=== PATIENT | male | born 1935 | race Caucasian/White ===

== ENCOUNTER 2017-10-17 09:04 | Day surgery (SDC) | payer OTHER ==
[~2017-10-17] VITALS: Ht 172.7 cm; Wt 111.1 kg
[2017-10-17] MEDS ORDERED: MIDAZOLAM HCL 1MG/1ML-2 ML VIAL IV ONE (09:45)
[2017-10-17] MEDS ORDERED: LIDOCAINE VISCOUS 2% 15ML UD PO ONE (09:45)
[2017-10-17] MEDS ORDERED: fentaNYL CITRATE 100 MCG/2 ML VL IV ONE (09:45)
[2017-10-17] MEDS ORDERED: BENZOCAINE (DENTAL) 20 % SPRAY 60ML MT ONE (09:45)
[2017-10-17] MEDS ORDERED: FLUMAZENIL 0.1 MG/ML INJ 10ML MDV IV ONE (09:49)
[2017-10-17] MEDS ORDERED: NALOXONE HCL 0.4 MG/ML VIAL ONE (09:49)
[2017-10-17] MEDS ORDERED: diphenhdrAMINE HCL 50 MG/1 ML VL ONE (10:12)
[2017-10-17] MEDS ORDERED: diphenhdrAMINE HCL 50 MG/1 ML VL IV ONE (10:45)
[2017-10-17] MEDS ORDERED: BACL20TA PO (11:05)
[2017-10-17] MEDS ORDERED: RIVA20TA PO (11:05)
[2017-10-17] MEDS ORDERED: AMIO200T33 PO (11:05)
[2017-10-17] MEDS ORDERED: ATOR80TA PO (11:05)
[2017-10-17] MEDS ORDERED: OMEP20CA74 PO (11:33)
[2017-10-17] MEDS ORDERED: TAMS0.4C36 PO (11:33)
[2017-10-17] MEDS ORDERED: SPIR25TA89 PO (11:33)
[2017-10-17] MEDS ORDERED: GLIM4TAB42 PO (11:33)
[2017-10-17] MEDS ORDERED: ATEN-60 PO (11:33)
[2017-10-17] MEDS ORDERED: NIF10C PO (11:33)
[2017-10-17] MEDS ORDERED: ALL100T PO (11:33)
[2017-10-17] MEDS ORDERED: LOSA25TA9 PO (11:33)
[2017-10-17] MEDS ORDERED: ALEN70TA55 PO (11:33)
== END 2017-10-17 11:45 | disposition home or self-care (01) ==
LOC: CATH 09:04
PROVIDERS: ATTEND Internal Medicine
DX: I48.91 Unspecified atrial fibrillation (principal); I10 Essential (primary) hypertension; E11.9 Type 2 diabetes mellitus without complications; E78.00 Pure hypercholesterolemia, unspecified
CPT/HCPCS: 92960; 93312; J1200; J2250; J3010; 99152

== ENCOUNTER 2020-06-27 04:54 | Inpatient (IN) | payer OTHER ==
[2020-06-27] VITALS (32 sets, daily range): BP systolic 67–160; BP diastolic 24–80
[~2020-06-27] VITALS: Ht 172.7 cm; Wt 117.8 kg
[~2020-06-27 04:54] MED LIST: ALEN1TAB32 PO; ALL100T PO; AMIO200T33 PO; ATEN-60 PO; ATOR80TA PO; BACL20TA PO; GLIM4TAB42 PO; LOSA25TA38 PO; NIF10C PO; OMEP20CA74 PO; RIVA20TA PO; SPIR25TA8 PO; TAMS0.4C36 PO
[2020-06-27] MEDS ORDERED: SUCCINYLCHOLINE CHLORIDE 20 MG/ML 10ML VIAL IV ONE (05:01)
[2020-06-27] MEDS ORDERED: ETOMIDATE (2MG/ML) 20ML VIAL IV ONE (05:01)
[2020-06-27] MEDS ORDERED: PROPOFOL 100 ML IV ONE (05:06)
[2020-06-27] MEDS ORDERED: dilTIAZem 25 MG/5 ML VIAL IV ONE ×2 (05:11→05:45)
[2020-06-27] MEDS ORDERED: dilTIAZem 125mg/125ml BAG KIT 125 ML IV ONE ×2 (05:19→05:45)
[2020-06-27] MEDS ORDERED: SODIUM CHLORIDE 0.9% 500 ML IV ONE (05:25)
[2020-06-27] MEDS ORDERED: MIDAZOLAM DRIP 50 mg/50mL 50 ML IV ONE (05:28)
[2020-06-27] MEDS: MIDAZOLAM DRIP 50 mg/50mL 50 ML IV SCH ×2 (05:30→18:25)
[2020-06-27] MEDS ORDERED: VANCOMYCIN PER PHARMACY 1,000 MG IV SCH (05:30)
[2020-06-27] MEDS ORDERED: PROPOFOL 10 MG/ML 20 ML IV ONE (05:45)
[2020-06-27] MEDS ORDERED: NOREPINEPHRINE 8 MG/250ML KIT 250 ML IV ONE (05:49)
[2020-06-27] MEDS: NOREPINEPHRINE 8 MG/250ML KIT 250 ML IV SCH ×3 (05:50→13:07)
[2020-06-27 05:56] LABS: Lactic Acid w/Reflex 2.4 mmol/L (0.4-2.0)
[2020-06-27] MEDS ORDERED: VANCOMYCIN 1GM/250ML 250 ML IV ONE (06:00)
[2020-06-27] MEDS: fentaNYL Drip 2500mCg/250mlNS 250 ML IV SCH (06:00)
[2020-06-27] MEDS ORDERED: fentaNYL Drip 2500mCg/250mlNS 250 ML IV ONE (06:08)
[2020-06-27] MEDS ORDERED: PHENYLEPHRINE IV 250 ML IV ONE (07:16)
[2020-06-27] MEDS: PHENYLEPHRINE IV 250 ML IV SCH ×2 (07:30→15:44)
[2020-06-27 07:32] LABS: Basophils # (auto) 0 10 ^3/uL (0-0.2); Basophils % (auto) 0.2 % (0.0-2.0); Eosinophils # (auto) 0.3 10 ^3/uL (0-0.8); Eosinophils % (auto) 2.4 % (0.0-7.0); Hematocrit 37.3 % (41.0-53.0); Hemoglobin 11.7 g/dL (13.5-17.5); Lymphocytes # (auto) 1.7 10 ^3/uL (0.4-5.4); Lymphocytes % (auto) 11.8 % (10.0-50.0); Mean Corpuscular Hemoglobin 30.9 pg (28.0-32.0); Mean Corpuscular Hgb Conc. 31.4 g/dL (32.0-36.0); Mean Corpuscular Volume 98.5 fL (80.0-100.0); Monocytes # (auto) 0.7 10 ^3/uL (0-1.3); Monocytes % (auto) 5.3 % (0.0-12.0); Neutrophils # (auto) 11.3 10 ^3/uL (1.6-8.6); Neutrophils % (auto) 80.3 % (37.0-80.0); Nucleated Red Blood Cells % 0.4 %; Platelet Count (auto) 203 10^3/uL (140-450); Red Blood Cells 3.79 10^6/uL (4.5-5.90); Red Cell Distribution Width 18.3 % (11.8-14.3)
[2020-06-27 07:52] LABS: Albumin 3.1 g/dL (3.4-5.0); Calcium 8.2 mg/dL (8.5-10.1); Potassium 4.3 mmol/L (3.5-5.1)
[2020-06-27 07:59] LABS: BUN/Creatinine Ratio 23.1; Bilirubin, Total 1.5 mg/dL (0.2-1.0); Total Protein 6.8 g/dL (6.4-8.2)
[2020-06-27 08:09] LABS: INR 1.39 (0.9-1.15); Partial Thromboplastin Time 32.2 sec (23.0-31.2)
[2020-06-27] MEDS: PIPERACILLIN-TAZOB 3.375GM 100 ML IV SCH ×3 (08:27→18:16)
[2020-06-27] MEDS ORDERED: AMIODARONE 450mg/250ml AE 250 ML IV SCH (08:54)
[2020-06-27] MEDS ORDERED: SODIUM CHLORIDE 0.9% 1,000 ML IV SCH (09:09)
[2020-06-27] MEDS ORDERED: VANCOMYCIN PER PHARMACY 0 MG IV SCH (09:15)
[2020-06-27] MEDS ORDERED: NITROGLYCERIN 0.4 MG SL TAB SL PRN (09:15)
[2020-06-27] MEDS ORDERED: ONDANSETRON HCL 4 MG/2 ML VIAL IV PRN (09:15)
[2020-06-27] MEDS ORDERED: PIPERACILLIN-TAZOB 3.375GM 100 ML IV ONE (09:15)
[2020-06-27] MEDS ORDERED: DEXTROSE (50%) 50ML SYRG IV PRN (09:15)
[2020-06-27] MEDS ORDERED: LACTULOSE 20Gm/30ML SOLN NG PRN (09:15)
[2020-06-27] MEDS ORDERED: AZITHROMYCIN 500MG/ 250ML 250 ML IV ONE (09:15)
[2020-06-27] MEDS ORDERED: MORPHINE SULF INJ 2 MG/ML SYRINGE 1ML IV PRN (09:15)
[2020-06-27] MEDS ORDERED: ALBUTEROL SULF 2.5 MG/0.5ML(0.5%) NEB SOLN NEB PRN (09:15)
[2020-06-27] MEDS ORDERED: SODIUM CHLORIDE 0.9% 3,200 ML IV ONE (09:45)
[2020-06-27] MEDS: AZITHROMYCIN 500MG/ 250ML 250 ML IV SCH (09:57)
[2020-06-27] MEDS: ENOXAPARIN SOD 100 MG/1 ML SYRINGE SC SCH ×2 (09:58→21:48)
[2020-06-27] MEDS: BUDESONIDE (INHALATION) 0.5 MG/2 ML NEB NEB SCH ×2 (10:00→18:30)
[2020-06-27] MEDS ORDERED: BUDESONIDE (INHALATION) 180 MCG IH IN SCH (10:00)
[2020-06-27] MEDS ORDERED: ZINC SULFATE 220mg CAP or TAB PO SCH (10:00)
[2020-06-27] MEDS ORDERED: DexAMETHasone SOD PHOS 10MG/1ML VIAL INJ IV SCH (10:00)
[2020-06-27] MEDS: ALBUTEROL SULF 2.5 MG/0.5ML(0.5%) NEB SOLN NEB SCH ×2 (10:53→18:30)
[2020-06-27] MEDS: IPRATROPIUM BROM 0.5 MG/2.5ML INH SOL NEB SCH ×2 (10:53→18:30)
--- NOTE | 2020-06-27 10:54 | NUR ---
NEBULIZER NOT ADMINISTERED AT THIS TIME DUE TO COVID 19 RULE/ OUT.
[2020-06-27] MEDS: ACCU-CHEK COMFORT CURVE STRIP VI SCH ×2 (11:51→18:21)
[2020-06-27] MEDS: InsuLIN REG 1unit/0.01ml Soln (100units/ml) SC SCH ×3 (11:54→23:42)
[2020-06-27] MEDS ORDERED: PIPERACILLIN-TAZOB 3.375GM 100 ML IV SCH (12:00)
[2020-06-27] MEDS ORDERED: ALBUTEROL SULF HFA 90MCG INH 200DOSE IN SCH (14:00)
[2020-06-27] MEDS: AMIODARONE 450mg/250ml AE 250 ML IV SCH (14:54)
[2020-06-27 16:19] LABS: Urine Bacteria FEW /hpf (None Seen); Urine Blood 1+ /uL (Negative); Urine Mucus FEW (None Seen); Urine Specific Gravity 1.007 (1.001-1.035); Urine WBC 3 /hpf (0 - 3)
--- NOTE | 2020-06-27 17:45 | NUR ---
Admit to ICU from ER on SHERYL [place] admitted to ICU via hospital bed on cardiac nurse specialist, intubated and being bagged by Respiratory Therapist. Patient connected to mechanical ventilator by therapist, ADRIANA at bedside. Patient connected to ICU monitoring, weighed by bedscale. See spreadsheet for physical assessment and fluids. Bed lcoked on low psoition,. side rails up x2, bed alarms on at all times, will continue to monitor.
[2020-06-27 19:40] LABS: BUN/Creatinine Ratio 21.2; Calcium 7.4 mg/dL (8.5-10.1); Potassium 4.9 mmol/L (3.5-5.1)
--- NOTE | 2020-06-27 19:45 | NUR ---
Spoke to patient's daughter Grecia over the phone. Updated on patient's status and POC. All questions and concerns addressed.
--- NOTE | 2020-06-27 20:30 | NUR ---
SPOKE WITH PATIENT'S DAUGHTER, ARNAV : AFTER PASSWORD VERIFIED, UPDATED ON PATIENT'S STATUS.
--- NOTE | 2020-06-27 20:30 | NUR ---
OPENING NOTE: INTUBATED AND GROSSLY UNRESPONSIVE. HYPOGAG AND COUGH. AFIB WITH PVCs AND BBB, HR 60-70s. NIBP TO LEFT UPPER ARM 120-130s ON LEVOPHED GTT. 7.5 ETT 22 AT THE LIP. LS CTA, DIMINISHED TO BASES. EVEN AND UNLABORED BREATHING. MINIMAL ETT AND ORAL SECRETIONS. SpO2>95% ON CURRENT VENT SETTINGS. ABD OBESE BUT SOFT. HYPOACTIVE BS. UNKNOWN LBM. OGT + AIR BOLUS, PLACED TO LIS, THICK BILIOUS OUTPUT. MARCUS PATENT AND INTACT DRAINING CLEAR YELLOW URINE. SKIN GROSSLY INTACT. LEFT FOREARM SKIN TEAR NOTED, COVERED WITH GENTLE OPTIFOAM. WILL TAKE WOUND CARE PHOTOS. BLANCHABLE ERYTHEMA TO SACRUM. 3+ GENERALIZED PITTING EDEMA. RIGHT AC 20 G PIV, CDI, AND PATENT WITH BLOOD RETURN, INFUSING VERSED, FENTANYL, AND LEVOPHED GTT. 20 G PIV TO LEFT WRIST, CDI AND PATENT, INFUSING NS AND ABX. 20 G PIV TO LEFT HAND, CDI AND PATENT WITH BLOOD RETURN, SALINE LOCKED. REINFORCED POC. MAINTAINED PATIENT SAFETY: BED LOCKED AND IN THE LOWEST POSITION, FREQUENT VISUAL CHECKS. WILL CONT CARE
--- NOTE | 2020-06-27 21:00 | NUR ---
SEDATION VACATION: PATIENT INTUBATED TODAY. DEEPLY SEDATED AND UNRESPONSIVE. WILL TITRATE SEDATION FOR COMFORT AND SAFETY. Addendum: 06/27/20 at 2214 by Aleyda Knight RN RN Amended: Links added.
--- NOTE | 2020-06-27 21:38 | NUR ---
PATIENT'S DAUGHTER IN LAW CALLED COMPUGRAPH OPERATOR: SHE DID NOT HAVE THE PASSWORD. ADVISED TO CONTACT FRANDY OR ARNAV.
[2020-06-27] MEDS: ATORVASTATIN 20 MG TAB NG SCH (21:48)
--- NOTE | 2020-06-27 22:35 | NUR ---
[facility]SA SWAB SENT
[2020-06-28] VITALS (100 sets, daily range): BP systolic 81–123; BP diastolic 43–75
--- NOTE | 2020-06-28 | NUR ---
PIV ASSESSMENT: RIGHT AC 20 G PIV, CDI AND PATENT WITH BLOOD RETURN. NO S/S OF INFILTRATION OR PHLEBITIS. INFUSING VERSED, FENTANYL AND LEVOPHED GTT. LEFT HAND 20 G PIV, CDI AND PATENT WITH BLOOD RETURN. NO S/S OF INFILTRATION OR PHLEBITIS. SALINE LOCK. LEFT WRIST 20 G PIV, CDI AND PATENT WITH BLOOD RETURN. NO S/S OF INFILTRATION OR PHLEBITIS. INFUSING ANTIBIOTICS
[2020-06-28] MEDS: PHENYLEPHRINE IV 250 ML IV SCH ×3 (00:04→12:57)
[2020-06-28] MEDS: ACCU-CHEK COMFORT CURVE STRIP VI SCH ×4 (00:22→17:57)
[2020-06-28] MEDS: PIPERACILLIN-TAZOB 3.375GM 100 ML IV SCH ×4 (00:23→17:57)
[2020-06-28] MEDS: MIDAZOLAM DRIP 50 mg/50mL 50 ML IV SCH ×2 (00:25→18:00)
--- NOTE | 2020-06-28 01:30 | NUR ---
BED BATH WITH CHG WIPES, DEMETRA CARE, MARCUS CARE, AND ORAL CARE COMPLETED
--- NOTE | 2020-06-28 01:45 | NUR ---
WOUND PHOTOS TAKEN - WOUND CONSULT PLACED
--- NOTE | 2020-06-28 02:00 | NUR ---
TRANSFERRED ONTO ICU BED - TOLERATED WELL
--- NOTE | 2020-06-28 02:00 | NUR ---
TEMP 96.9F RECTALLY - APPLIED WARM BLANKETS
[2020-06-28] MEDS: IPRATROPIUM BROM 0.5 MG/2.5ML INH SOL NEB SCH ×5 (02:43→23:56)
[2020-06-28] MEDS: ALBUTEROL SULF 2.5 MG/0.5ML(0.5%) NEB SOLN NEB SCH ×5 (02:43→23:56)
--- NOTE | 2020-06-28 03:02 | NUR ---
TEMP 96.4F RECTALLY - ELODIA GENNY APPLIED
[2020-06-28 04:22] LABS: Basophils # (auto) 0 10 ^3/uL (0-0.2); Basophils % (auto) 0.2 % (0.0-2.0); Eosinophils # (auto) 0 10 ^3/uL (0-0.8); Hematocrit 30.1 % (41.0-53.0); Hemoglobin 9.5 g/dL (13.5-17.5); Lymphocytes # (auto) 0.2 10 ^3/uL (0.4-5.4); Lymphocytes % (auto) 3.8 % (10.0-50.0); Mean Corpuscular Hemoglobin 30.8 pg (28.0-32.0); Mean Corpuscular Hgb Conc. 31.7 g/dL (32.0-36.0); Mean Corpuscular Volume 97.3 fL (80.0-100.0); Monocytes # (auto) 0.2 10 ^3/uL (0-1.3); Monocytes % (auto) 3.9 % (0.0-12.0); Neutrophils # (auto) 5.9 10 ^3/uL (1.6-8.6); Neutrophils % (auto) 92.1 % (37.0-80.0); Platelet Count (auto) 134 10^3/uL (140-450); Red Cell Distribution Width 17.9 % (11.8-14.3); White Blood Cell 6.4 10^3/uL (4.4-10.8)
[2020-06-28 04:40] LABS: Cholesterol 92 mg/dL (< 200)
[2020-06-28 04:43] LABS: HDL Cholesterol 47 mg/dL (40-59); LDL Cholesterol 43 mg/dL (< 100); Triglycerides 69 mg/dL (< 150)
[2020-06-28] MEDS ORDERED: VANCOMYCIN 1GM/250ML 250 ML IV SCH (05:00)
--- NOTE | 2020-06-28 05:17 | NUR ---
TEMP NOW 97.3F RECTALLY
--- NOTE | 2020-06-28 05:19 | NUR ---
PIV ASSESSMENT: RIGHT AC 20 G PIV, CDI AND PATENT WITH BLOOD RETURN. NO S/S OF INFILTRATION OR PHLEBITIS. INFUSING VERSED, FENTANYL AND LEVOPHED GTT. LEFT WRIST 20 G PIV, CDI AND PATENT WITH BLOOD RETURN. NO S/S OF INFILTRATION OR PHLEBITIS. INFUSING ANTIBIOTICS LEFT HAND 20 G PIV LEAKING, REMOVED, TIP INTACT
--- NOTE | 2020-06-28 05:24 | NUR ---
INQUIRED WITH LAB THAT CMP OR BMP WAS DRAWN BUT IT IS NOT SHOWING PENDING, PER LAB WILL ADDRESS
[2020-06-28] MEDS ORDERED: GLIM-6 PO (05:53)
[2020-06-28] MEDS ORDERED: HYDR-4833 PO (05:54)
[2020-06-28] MEDS: AMIODARONE 450mg/250ml AE 250 ML IV SCH ×2 (05:54→20:54)
[2020-06-28] MEDS ORDERED: PSEUSYP56 OR (05:54)
[2020-06-28] MEDS ORDERED: GLIM2TAB33 PO (05:54)
--- NOTE | 2020-06-28 05:55 | NUR ---
SPOKE WITH PATIENT'S DAUGHTER, FRANDY: AFTER PASSWORD VERIFIED, UPDATED ON PATIENT'S STATUS. COMPLETED MEDICATION REC. 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 PATIENT'S PCP IS DR. PADMA OYO
[2020-06-28] MEDS: BUDESONIDE (INHALATION) 0.5 MG/2 ML NEB NEB SCH ×2 (06:00→18:25)
[2020-06-28 06:02] LABS: BUN/Creatinine Ratio 22.6; Calcium 7.1 mg/dL (8.5-10.1); Potassium 4.2 mmol/L (3.5-5.1)
[2020-06-28] MEDS: InsuLIN REG 1unit/0.01ml Soln (100units/ml) SC SCH ×3 (06:02→18:00)
[2020-06-28] MEDS: fentaNYL Drip 2500mCg/250mlNS 250 ML IV SCH (06:04)
[2020-06-28 06:06] LABS: Bilirubin, Total 1.3 mg/dL (0.2-1.0); Total Protein 5.1 g/dL (6.4-8.2)
--- NOTE | 2020-06-28 06:15 | NUR ---
Respiratory note: TITRATED FIO2 TO 35%, RN INFORMED.
--- NOTE | 2020-06-28 07:29 | NUR ---
REPORT AND CARE ENDORSED TO CRISTAL OMALLEY
--- NOTE | 2020-06-28 09:35 | NUR ---
DR FISCHER AT BEDSIDE DISCUSSED PATIENTS STATUS. NO NEW ORDERS AT THIS TIME
--- NOTE | 2020-06-28 09:45 | NUR ---
CONSTRUCTION PROJECT ENGINEER AT BEDSIDE ASSESSED PATIENTS SKIN, PATIENT REPOSITIONED
--- NOTE | 2020-06-28 09:46 | NUR ---
WOUND CARE NOTE: Wound care in to see patient per wound care request skin integrity issue that are noted present on admission. Bedside nurse took photograph of patient's wounds upon admission for reference. Patient is 84 years old male with admitting diagnosis of Acute Resp Failure, A Fib w/ RVR, Hypotension. Patient is ICU status, resting in ICU bed in [address] Supervisor bed#8. Patient is intubated,sedated and mechanically ventilated. Patient appears to be in no pain using Roth Morley Faces Pain Scale. His Art score is 12. Skin assessment done with the assistance of patient's nurse, CRISTAL Cristina. Patient admitted with open full thickness skin tear to Lt forearm measuring 0.3x2cm and to his Rt upper arm measuring 1x2cm. Skin tears are on ecchymotic skin, portia wound is bright red and purple, minimal serosanguineous drainage noted. Patient's arms noted erythremic and edematous. Bedside nurse, cleansed patient's skin tears with NS,patted dry with gauze, applied Thera honey gel and covered with Opti foam gentle dressing. Patient's medial sacrum at intragluteal fold noted with moist redness consistent with intertrigo. Portia care given and applied Z Guard cream to sacrum. Patient tolerated well, repositioned for comfort facing his Rt side, redistributed pressure points with pillows. Cristal Cristina at bedside. RECOMMENDATION: Nursing to continue with BID/PRN cleaning and application of Z Guard cream to sacrum; Q3Days/PRN dressing change to bilateral arm skin tear per MD order, Dietary consult for low Art score and wounds, frequent turning and repositioning schedule as condition permits, redistribute pressure points with pillows, elevate heels on pillows, continue monitoring by wound care while patient is hospitalized. Addendum: 06/28/20 at 1448 by Sabiha Sawyer RN Amended: Links added.
--- NOTE | 2020-06-28 10:04 | NUR ---
SPOKE WITH DR DALE (PATIENTS FIBERGLASS LAMINATOR OUTPATIENT) DISCUSSED PATIENTS STATUS AND RECEIVED NEW ORDERS. DR DALE WILL TAKE OVER AT PATIENTS FIBERGLASS LAMINATOR DURING HOSPITALIZATION
[2020-06-28] MEDS ORDERED: FUROSEMIDE 40 MG/4 ML VIAL IV ONE (10:15)
[2020-06-28] MEDS: ENOXAPARIN SOD 100 MG/1 ML SYRINGE SC SCH ×2 (10:18→22:00)
[2020-06-28] MEDS: AZITHROMYCIN 500MG/ 250ML 250 ML IV SCH (10:18)
--- NOTE | 2020-06-28 11:16 | NUR ---
PATIENTS DAUGHTER FRANDY CALLED FOR UPDATE PROVIDED PASSWORD. UPDATED ON CURRENT STATUS AND PLAN OF CARE. ADDRESSED CONCERNS
[2020-06-28] MEDS: NOREPINEPHRINE 8 MG/250ML KIT 250 ML IV SCH (12:57)
--- NOTE | 2020-06-28 13:40 | NUR ---
DR DALE AT BEDSIDE NO NEW ORDERS AT THIS TIME
--- NOTE | 2020-06-28 14:15 | NUR ---
PATIENTS STEP DAUGHTER CRICKET CALLED FOR UPDATE PROVIDED PASSWORD. UPDATED ON CURRENT STATUS AND PLAN OF CARE. ADDRESSED CONCERNS
--- NOTE | 2020-06-28 15:22 | NUR ---
PATIENTS KAMI WISE CALLED FOR UPDATE PROVIDED PASSWORD, UPDATED ON CURRENT STATUS.
--- NOTE | 2020-06-28 15:37 | NUR ---
Consult Consider Glucerna 1.2 @ 60 ml/hr if TF is recommended route of nutrition per Md approval Est energy needs 3173-6796 kcal (11-14kcal/kg BW 129.1kg) Est protein needs 70-105g (1-1.5g/kg IBW 70kg) Will reassess prn Addendum: 06/28/20 at [address] Amended: Links added.
--- NOTE | 2020-06-28 16:24 | NUR ---
PATIENT TO BE MOVED TO ICU UNIT, BED 104 PATIENTS DAUGHTER FRANDY INFORMED. SHE STATED SHE WILL LET OTHER FAMILY MEMBERS KNOW NEW ROOM ASSIGNMENT
--- NOTE | 2020-06-28 17:05 | NUR ---
PATIENTS DAUGHTER ARNAV CALLED FOR UPDATE PROVIDED PASSWORD. UPDATED ON CURRENT STATUS AND PLAN OF CARE
--- NOTE | 2020-06-28 17:35 | NUR ---
MIDLINE RN AT BEDSIDE
--- NOTE | 2020-06-28 17:54 | NUR ---
Midline Placement: Patient educated on need for midline placement. All risks and benefits explained and all questions and concerns addresses prior to procedure. 18g/10cm midline inserted via RIGHT BASILIC vein using Ultrasound. Sterile technique utilized. Blood return obtained from THE lumen and flushed easily with NS using proper technique. Midline secured with saline lock; biodisc and occlusive dressing applied. Primary RN notified. Midline lot # [id number].
--- NOTE | 2020-06-28 19:05 | NUR ---
Report received from CRISTAL Cristina. Patient intubated with EET 7.5 at 22 CM L/L. Vent settings: AC 16, Vt 600, Fio2 35%, PEEP 5. IVF: Fentanyl 50 mcg/hr; Versed 5 mg/hr. Will continue with POC; and, will continue to monitor VS, RASS -3, and clinical status.
[2020-06-28] MEDS: ATORVASTATIN 20 MG TAB NG SCH (22:00)
--- NOTE | 2020-06-28 22:00 | NUR ---
Rtn scheduled meds given. See e-MAR.
[2020-06-29] VITALS (95 sets, daily range): BP systolic 98–160; BP diastolic 46–92
--- NOTE | 2020-06-29 | NUR ---
Rtn scheduled medication given. See e-MAR.
--- NOTE | 2020-06-29 | NUR ---
Accucheck 135 mg/dl. Patient covered with Regular Insulin 2 units SQ.
[2020-06-29] MEDS: PIPERACILLIN-TAZOB 3.375GM 100 ML IV SCH (00:01)
[2020-06-29] MEDS: ACCU-CHEK COMFORT CURVE STRIP VI SCH ×4 (00:02→19:39)
[2020-06-29] MEDS: InsuLIN REG 1unit/0.01ml Soln (100units/ml) SC SCH ×4 (00:06→18:00)
[2020-06-29] MEDS: FUROSEMIDE 40 MG/4 ML VIAL IV SCH ×3 (00:30→19:37)
--- NOTE | 2020-06-29 00:30 | NUR ---
Rtn scheduled medication. See e-MAR.
[2020-06-29] MEDS: PHENYLEPHRINE IV 250 ML IV SCH ×2 (01:04→09:24)
--- NOTE | 2020-06-29 03:50 | NUR ---
AM blood collected by sign writer hand from [facility]. Specimens sent to lab.
[2020-06-29 04:07] LABS: Basophils # (auto) 0 10 ^3/uL (0-0.2); Basophils % (auto) 0.2 % (0.0-2.0); Eosinophils # (auto) 0 10 ^3/uL (0-0.8); Eosinophils % (auto) 0.1 % (0.0-7.0); Hematocrit 28.6 % (41.0-53.0); Hemoglobin 9.2 g/dL (13.5-17.5); Lymphocytes # (auto) 0.4 10 ^3/uL (0.4-5.4); Lymphocytes % (auto) 5.2 % (10.0-50.0); Mean Corpuscular Hemoglobin 30.8 pg (28.0-32.0); Mean Corpuscular Volume 96.3 fL (80.0-100.0); Monocytes # (auto) 0.5 10 ^3/uL (0-1.3); Monocytes % (auto) 6.9 % (0.0-12.0); Neutrophils # (auto) 6.9 10 ^3/uL (1.6-8.6); Neutrophils % (auto) 87.6 % (37.0-80.0); Platelet Count (auto) 119 10^3/uL (140-450); Red Blood Cells 2.97 10^6/uL (4.5-5.90); Red Cell Distribution Width 17.7 % (11.8-14.3); White Blood Cell 7.9 10^3/uL (4.4-10.8)
[2020-06-29 04:23] LABS: INR 1.18 (0.9-1.15); Partial Thromboplastin Time 37.8 sec (23.0-31.2)
[2020-06-29 04:28] LABS: Potassium 3.9 mmol/L (3.5-5.1)
[2020-06-29 04:34] LABS: BUN/Creatinine Ratio 18.8; Bilirubin, Direct 0.4 mg/dL (0-0.2); Calcium 7.3 mg/dL (8.5-10.1); Magnesium 2.1 mg/dL (1.6-2.6); Total Protein 4.8 g/dL (6.4-8.2)
--- NOTE | 2020-06-29 04:46 | NUR ---
PCXR done at bedside.
[2020-06-29] MEDS: MIDAZOLAM DRIP 50 mg/50mL 50 ML IV SCH (05:18)
--- NOTE | 2020-06-29 05:18 | NUR ---
Versed drip changed to new bag.
--- NOTE | 2020-06-29 06:00 | NUR ---
Accucheck 119 mg/dl. No coverage indicated.
[2020-06-29] MEDS: IPRATROPIUM BROM 0.5 MG/2.5ML INH SOL NEB SCH ×3 (06:24→19:17)
[2020-06-29] MEDS: BUDESONIDE (INHALATION) 0.5 MG/2 ML NEB NEB SCH ×2 (06:24→19:17)
[2020-06-29] MEDS: ALBUTEROL SULF 2.5 MG/0.5ML(0.5%) NEB SOLN NEB SCH ×3 (06:24→19:17)
--- NOTE | 2020-06-29 06:31 | NUR ---
Respiratory note: RECEIVED PATIENT ON V11 ESPRIT VENT ORALLY INTUBATED WITH AN 8.0 ETT SECURED VIA DYLAN AT THE 22CM MARKING AT THE LIP, AND MECHANICALLY VENTILATED WITH THE CHARTED SETTINGS. SPO2 97%, LUNG SOUNDS CLEAR/DIM T/O, SCANT AMOUNT OF LIGHT DIAZ SECRETIONS WHEN SUCTIONED. SKIN IS WARM/DRY TO THE TOUCH AND IS INTACT NEAR DYLAN SITE. THERE IS AN OGT IN PLACE AND IS SECURED TO THE ETT, A MIDLINE CATHETER IS PLACED IN THE RIGHT ARM. PITTING EDEMA NOTED IN BILATERAL UPPER AND LOWER EXTREMITIES. AM CXR ASSESSED AND IT SHOWED ETT IN UNSATISFACTORY POSITION SITTING APPROX 6.2CM ABOVE THE MONA; ETT SUBSEQUENTLY ADVANCED 2CM AND RESECURED AT THE 24CM MARKING AT THE LIP. PATIENT IS UNRESPONSIVE TO BOTH VERBAL/TACTILE STIMULI AND IS SEDATED ON VERSED AND FENTANYL DRIPS. HE IS RESTING COMFORTABLY AND TOLERATING VENT WELL, NO CHANGES MADE. VENT PLUGGED INTO RED OUTLET AND ALL ALARMS ARE SET AND AUDIBLE. WILL CONTINUE TO ASSESS PATIENT WELL VENTILATOR FUNCTION. [employer] RUN INLINE.
--- NOTE | 2020-06-29 06:32 | NUR ---
Respiratory note: AM CXR ASSESSED AND IT SHOWED ETT IN UNSATISFACTORY POSITION SITTING APPROX 6.2CM ABOVE THE MONA; ETT SUBSEQUENTLY ADVANCED 2CM AND RESECURED AT THE 24CM MARKING AT THE LIP.
--- NOTE | 2020-06-29 08:30 | NUR ---
SPOKE TO THE PATIENTS DAUGHTER FRANDY OVER THE PHONE. SHE PROVIDED THE PASSWORD. UPDATED HER ON THE PLAN OF CARE.
--- NOTE | 2020-06-29 08:41 | NUR ---
TECH AT BEDSIDE PERFORMING ECHOCARDIOGRAM.
--- NOTE | 2020-06-29 08:48 | NUR ---
NO VIBRAMYCIN IN XIS. CALLED PHARMACY. SPOKE TO POSITION CLASSIFICATION SPECIALIST OVER THE PHONE. VIBRAMYCIN BACK ORDERED.
[2020-06-29] MEDS ORDERED: DOXYCYCLINE 100MG/250ML 250 ML IV SCH (09:00)
[2020-06-29] MEDS: fentaNYL Drip 2500mCg/250mlNS 250 ML IV SCH (10:05)
[2020-06-29] MEDS: ALLOPURINOL 100 MG TAB PO SCH (10:15)
[2020-06-29] MEDS: ENOXAPARIN SOD 100 MG/1 ML SYRINGE SC SCH ×2 (10:35→21:03)
--- NOTE | 2020-06-29 11:01 | NUR ---
AMADO AT BEDSIDE PERFORMING CHEST ULTRASOUND
[2020-06-29] MEDS ORDERED: DexMEDEtomidine 400 MCG in D5W 5% 96 ML IV SCH (11:21)
--- NOTE | 2020-06-29 11:42 | NUR ---
METTA AT BEDSIDE
[2020-06-29] MEDS: AMIODARONE 450mg/250ml AE 250 ML IV SCH (11:54)
--- NOTE | 2020-06-29 12:40 | NUR ---
DR Radha VILLAR AT BEDSIDE. NEW ORDERS RECIEVED.
[2020-06-29] MEDS ORDERED: DOXYCYCLINE 100 MG TAB/CAP PO ONE (13:00)
--- NOTE | 2020-06-29 13:04 | NUR ---
RT AT BEDSIDE. CPAP TRIAL INITIATED.
--- NOTE | 2020-06-29 13:05 | NUR ---
Respiratory note: PATIENT PLACED ON CPAP MODE AT THIS TIME FOR WEANING ATTEMPT. PATIENT REMAINS ON PRECEDEX DRIP. HE IS EASILY AROUSABLE, FOLLOWS COMMANDS, AND IS TOLERATING SPONTANEOUS BREATHING WELL. WILL CONTINUE TO MONITOR CLOSELY. CRISTAL OMALLEY AT BEDSIDE AND AWARE OF CHANGES MADE. VT: 655 RR: 20 SPO2: 95% HR: 118 BP: 131/69
[2020-06-29] MEDS ORDERED: EPINEPHrine HCL 0.5 ML NEB NEB PRN (14:30)
--- NOTE | 2020-06-29 14:40 | NUR ---
RT AT BESIDE. PATIENT EXTUBATED. NO SIGNS AND SYMPTOMS OF RESPIRATORY DISTRESS. WILL CONTINUE TO MONITOR.
--- NOTE | 2020-06-29 14:46 | NUR ---
Respiratory note: PATIENT EXTUBATED AT 1440 POST POSITIVE CPAP TRIAL AND WEANING PARAMETERS, AND PER DR. FISCHER'S TELEPHONE ORDER. HE WAS PLACED ON 30% COOL AEROSOL MASK AND SPO2 MAINTAINS AT 93%. NO STRIDOR HEARD. PATIENT TOLERATING EXTUBATION WELL; EXTUBATION COMPLETED WITHOUT INCIDENT. CRISTAL OMALLEY AWARE OF ALL CHANGES.
[2020-06-29] MEDS: TAMSULOSIN HYDROCHLORIDE 0.4 MG CAP PO SCH (18:00)
--- NOTE | 2020-06-29 20:40 | NUR ---
SPOKE TO FRANDY (DAUGHTER) UPDATED FRANDY ON PT STATUS AND POC, ALL QUESTIONS AND CANCERS ADDRESSED. STATED THAT SHE WILL CALL IN A MORNING.
[2020-06-29] MEDS: ATORVASTATIN 20 MG TAB NG SCH (21:02)
[2020-06-29] MEDS: DOXYCYCLINE 100 MG TAB/CAP PO SCH (21:02)
--- NOTE | 2020-06-29 21:03 | NUR ---
MEDICATIONS HELD PO MEDS HELD, NPO, NO NG OR OG TUBE. LOVENOX HELD, PT BLEEDING AT MIDLINE SITE, MIDLINE SITE SECURED WITH NEW DRESSING AND SNOW USING STERILE TECHNIQUE, WILL CONTINUE TO MONITOR FOR BLEEDING.
--- NOTE | 2020-06-29 22:10 | NUR ---
MIDLINE DRESSING CHANGED DRESSING CHANGED USING STERILE TECHNIQUE, BIO DISK APPLIED, FLUSHES WELL, GOOD BLOOD RETURN. SITE APPEAR INTACT, NO SIGN OF REDNESS OR DISCHARGE.
[2020-06-30] VITALS (51 sets, daily range): BP systolic 102–159; BP diastolic 49–87
[2020-06-30] MEDS: ACCU-CHEK COMFORT CURVE STRIP VI SCH ×4 (00:29→17:48)
[2020-06-30] MEDS: ALBUTEROL SULF 2.5 MG/0.5ML(0.5%) NEB SOLN NEB SCH ×4 (00:35→18:41)
[2020-06-30] MEDS: IPRATROPIUM BROM 0.5 MG/2.5ML INH SOL NEB SCH ×4 (00:36→18:41)
[2020-06-30] MEDS: PHENYLEPHRINE IV 250 ML IV SCH ×2 (02:04→14:03)
[2020-06-30] MEDS: AMIODARONE 450mg/250ml AE 250 ML IV SCH ×3 (02:54→08:10)
--- NOTE | 2020-06-30 03:32 | NUR ---
CARES FULL BED LINEN CHANGE, PARTIAL BED BATH, PATIENT DESATURATED TO MID 80% DURING TURNING.
[2020-06-30 04:08] LABS: Basophils # (auto) 0 10 ^3/uL (0-0.2); Basophils % (auto) 0.1 % (0.0-2.0); Eosinophils # (auto) 0.1 10 ^3/uL (0-0.8); Eosinophils % (auto) 0.7 % (0.0-7.0); Hemoglobin 10.5 g/dL (13.5-17.5); Lymphocytes # (auto) 0.6 10 ^3/uL (0.4-5.4); Lymphocytes % (auto) 7.1 % (10.0-50.0); Mean Corpuscular Hemoglobin 30.8 pg (28.0-32.0); Mean Corpuscular Hgb Conc. 31.7 g/dL (32.0-36.0); Mean Corpuscular Volume 97.1 fL (80.0-100.0); Monocytes # (auto) 0.9 10 ^3/uL (0-1.3); Neutrophils # (auto) 7.1 10 ^3/uL (1.6-8.6); Neutrophils % (auto) 82.1 % (37.0-80.0); Platelet Count (auto) 155 10^3/uL (140-450); Red Cell Distribution Width 17.4 % (11.8-14.3); White Blood Cell 8.6 10^3/uL (4.4-10.8)
[2020-06-30 04:36] LABS: Calcium 7.7 mg/dL (8.5-10.1); Potassium 3.5 mmol/L (3.5-5.1)
[2020-06-30] MEDS: MIDAZOLAM DRIP 50 mg/50mL 50 ML IV SCH (05:27)
[2020-06-30] MEDS: InsuLIN REG 1unit/0.01ml Soln (100units/ml) SC SCH ×4 (06:00→17:48)
[2020-06-30] MEDS: fentaNYL Drip 2500mCg/250mlNS 250 ML IV SCH (06:04)
[2020-06-30] MEDS: BUDESONIDE (INHALATION) 0.5 MG/2 ML NEB NEB SCH ×2 (06:11→18:41)
[2020-06-30] MEDS: FUROSEMIDE 40 MG/4 ML VIAL IV SCH (06:21)
--- NOTE | 2020-06-30 07:40 | NUR ---
AMIODARONE GTT STARTED: HR A.FIB > 160'S STARTED PATIENT ON AMIODARONE GTT AT 0.5 MG/MIN, DR. DALE TO BE INFORMED. WILL CONTINUE TO MONITOR.
--- NOTE | 2020-06-30 08:10 | NUR ---
DR. DALE AT BEDSIDE: ORDERS MD UPDATED ON PT'S AND LABS FOR TODAY. INFORMED AMIODARONE GTT HAS BEEN STARTED. MD VERBALIZES UNDERSTANDING. WILL CONTINUE TO MONITOR. CONTINUE CARE.
[2020-06-30] MEDS ORDERED: POTASSIUM CHLORIDE 60 MEQ, LIDOCAINE 1% (LOCAL ANESTH.) 6 ML in SODIUM CHL 0.9% 500 ML IV ONE (09:15)
[2020-06-30] MEDS: ALLOPURINOL 100 MG TAB PO SCH (09:19)
[2020-06-30] MEDS: ENOXAPARIN SOD 100 MG/1 ML SYRINGE SC SCH (09:19)
[2020-06-30] MEDS: DOXYCYCLINE 100 MG TAB/CAP PO SCH ×2 (09:19→22:03)
--- NOTE | 2020-06-30 12:13 | NUR ---
Nutrition Followup Notes Pt wt is 119.3 kg Pt is extubated, breathing on his own, sleeping and lightly stirring with no relatives at bedside when rounded this morning. Pt with no noted distress per RN doc. Pt is NPO with no diet order yet. Will continue to monitor PO status, skin status, pertinent labs and weight trends. Will f/u in 2-3 days. Est energy needs 1771-3389 kcal (11-14kcal/kg BW 129.1kg) Est protein needs 70-105g (1-1.5g/kg IBW 70kg) Will reassess prn LABS: BUN 30 H, Cr 1.5 H, GFR 47 L, Ca 7.7 L, Alb 2.0 L GI: Pt had no BM today per RN doc BS: 12 High risk. Refer to wound assessment report for full details. PES: Inadequate oral intake r/t current medical condition aeb pt with NPO diet order Malnutrition related to morbid BMI> or equal to 40 Comments 1) Continue to monitor NPO status, labs, skin 2) Refer pt to OPD on DC 3) Continue current plan of care
--- NOTE | 2020-06-30 14:00 | NUR ---
DR. Radha VILLAR AT BEDSIDE: ORDERS MD UPDATED ON PT'S CURRENT STATUS, LABS AND POC FOR TODAY. ORDERS GIVEN AND TO BE CARRIED OUT. MD WANTING TO FOLLOW UP ON SWALLOW EVALUATION. SPEECH THERAPIST TO BE BY AFTER 1529 TODAY. PATIENT TO REMAIN STRICT NPO STATUS AT THIS TIME. NS BOLUS TO BE GIVEN, SEE EMAR FOR TIME GIVEN. MD WANTING PATIENT TO REMAIN ICU STATUS AT THIS TIME. CONTINUE CARE.
[2020-06-30] MEDS: NOREPINEPHRINE 8 MG/250ML KIT 250 ML IV SCH (14:03)
[2020-06-30] MEDS ORDERED: METOPROLOL TARTRATE 25 MG TAB PO SCH (14:15)
[2020-06-30] MEDS ORDERED: SODIUM CHLORIDE 0.9% 250 ML IV ONE (14:15)
--- NOTE | 2020-06-30 14:45 | NUR ---
FAMILY CALLED: UPDATE PATIENT'S DAUGHTER CALLED, UPDATED ARNAV, ON PT'S CURRENT STATUS, LABS AND POC FOR TODAY. CONTINUE CARE. INFORMED PATIENT STILL REMAINS ICU PATIENT AT THIS POINT IN TIME.
--- NOTE | 2020-06-30 15:35 | NUR ---
PO MEDICATIONS PATIENT GIVEN LOPRESSOR 12.5 MG PO, CRUSHED AND PUT IN APPLESAUCE, CLEARED BY SPEECH THERAPIST. PATIENT ALSO GIVEN A LITTLE NECTAR THICKEN LIQUIDS. PATIENT TOLERATED WELL, IN HIGH CHARLES'S POSITION. NO COUGHING NOTED. WILL CONTINUE CARE. Addendum: 06/30/20 at 1544 by Angeles Hinton RN ABOVE NOTE TO BE MADE AT 1540. CONTINUE CARE.
--- NOTE | 2020-06-30 15:39 | NUR ---
SWALLOW EVALUATED. PATIENT HAS DENTURES. PATIENT ABLE TO FOLLOW SINGLE STEP COMMANDS. PATIENT ABLE TO TOLERATE PUREE DIET TEXTURE WITH NECTAR THICKENED LIQUIDS WITH NO OVERT SIGNS OR SYMPTOMS OF ASPIRATION. PATIENT COUGHED SOME ON THIN LIQUID TRIAL. NURSING NOTIFIED.
--- NOTE | 2020-06-30 16:22 | NUR ---
assessment Patient is a 84 year old male who is in ICU and extubated. Per patients daughter and YOSSI Paige [place] [phone] prior to admission patient lived home with her and functioned with her assistance. Mark Paige patient has a scooter for home use. Patients PCP is Dr Cornell. Mark Paige patient has had shortness of breath for the past 2 weeks and she has been trying to get oxygen through patients PCP with no luck so she called 911 when patients breathing became worse. I have offered Grecia various discharge options due to patients hospitalization such as private pay caregivers, home health, and placement. Grecia refused caregivers stating she does fine on her own, Grecia refused SNF stating patient will return home with her. Grecia is requesting oxygen to be tested and home health on discharge I informed Grecia I will continue to monitor and follow up as appropriate. Grecia verbalized understanding and agreed to discharge plan home. Addendum: 06/30/20 at 1630 by Nory GAMEZ Amended: Links added.
[2020-06-30] MEDS: TAMSULOSIN HYDROCHLORIDE 0.4 MG CAP PO SCH (17:21)
[2020-06-30] MEDS ORDERED: METOPROLOL TARTRATE 25 MG TAB PO ONE (18:30)
--- NOTE | 2020-06-30 18:33 | NUR ---
DR. Radha VILLAR AT BEDSIDE: ORDERS GIVEN MD UPDATED ON PT'S CURRENT STATUS, LABS AND POC FOR TODAY. ORDERS GIVEN AND TO BE CARRIED OUT. STATES THAT PATIENT MAY BE DOWNGRADED TO [facility] STATUS TONIGHT. MAY CONTINUE WITH AMIODARONE GTT AT THIS TIME. CONTINUE CARE. REPORT TO BE GIVEN TO NOC RN. CONTINUE CARE AT THIS TIME.
--- NOTE | 2020-06-30 20:38 | NUR ---
SPOKE TO ARNAV (DAUGHTER) UPDATED HER ON PATIENTS STATUS AND POC, ALL QUESTIONS AND CONCERNS ADDRESSED.
--- NOTE | 2020-06-30 22:00 | NUR ---
PATIENT ABLE TO SWALLOW MEDICATIONS PATIENT TOOK MEDICATION BY MOUTH, NO SIGN OF CHOCKING, GAGGING, COUGHING OR CLEARING THROAT. PATIENT ABLE TO EAT JELLO.
[2020-06-30] MEDS: APIXABAN 2.5 MG TAB PO SCH (22:01)
[2020-06-30] MEDS: ATORVASTATIN 20 MG TAB NG SCH (22:01)
[2020-06-30] MEDS: METOPROLOL TARTRATE 25 MG TAB PO SCH (22:03)
[2020-07-01] VITALS (14 sets, daily range): BP systolic 122–153; BP diastolic 59–79
[2020-07-01] MEDS: ACCU-CHEK COMFORT CURVE STRIP VI SCH ×4 (00:29→17:24)
--- NOTE | 2020-07-01 02:00 | NUR ---
MIDLINE DRESSING CHANGED USING STERILE TECHNIQUE, APPLIED BIO DISK TO SITE. GOOD BLOOD RETURN.
--- NOTE | 2020-07-01 03:06 | NUR ---
CARES FULL BED LINEN CHANGE, PARTIAL BED BATH. CHANGED OPTIFOAMS THROUGHOUT. APPLIED OPTIFOAM TO SACRUM. PATIENT TOLERATED CARES WELL.
[2020-07-01] MEDS: ALBUTEROL SULF 2.5 MG/0.5ML(0.5%) NEB SOLN NEB SCH ×4 (03:36→17:37)
[2020-07-01] MEDS: IPRATROPIUM BROM 0.5 MG/2.5ML INH SOL NEB SCH ×4 (03:37→17:37)
[2020-07-01 03:55] LABS: Basophils # (auto) 0 10 ^3/uL (0-0.2); Basophils % (auto) 0.1 % (0.0-2.0); Eosinophils # (auto) 0.2 10 ^3/uL (0-0.8); Eosinophils % (auto) 2.4 % (0.0-7.0); Hematocrit 30.5 % (41.0-53.0); Lymphocytes # (auto) 0.8 10 ^3/uL (0.4-5.4); Lymphocytes % (auto) 9.2 % (10.0-50.0); Mean Corpuscular Hemoglobin 31.4 pg (28.0-32.0); Mean Corpuscular Hgb Conc. 32.9 g/dL (32.0-36.0); Mean Corpuscular Volume 95.5 fL (80.0-100.0); Monocytes # (auto) 0.7 10 ^3/uL (0-1.3); Neutrophils # (auto) 6.5 10 ^3/uL (1.6-8.6); Neutrophils % (auto) 79.3 % (37.0-80.0); Platelet Count (auto) 166 10^3/uL (140-450); Red Blood Cells 3.19 10^6/uL (4.5-5.90); Red Cell Distribution Width 17.2 % (11.8-14.3); White Blood Cell 8.2 10^3/uL (4.4-10.8)
[2020-07-01 04:12] LABS: BUN/Creatinine Ratio 24.4; Calcium 8.3 mg/dL (8.5-10.1); Potassium 3.9 mmol/L (3.5-5.1)
[2020-07-01] MEDS: MIDAZOLAM DRIP 50 mg/50mL 50 ML IV SCH (05:27)
[2020-07-01] MEDS: BUDESONIDE (INHALATION) 0.5 MG/2 ML NEB NEB SCH ×2 (06:05→17:37)
[2020-07-01] MEDS: InsuLIN REG 1unit/0.01ml Soln (100units/ml) SC SCH ×4 (06:10→17:24)
[2020-07-01] MEDS: AMIODARONE HCL 200 MG TAB PO SCH ×2 (06:12→10:00)
--- NOTE | 2020-07-01 07:55 | NUR ---
STOPPED AMIO GTT AT THIS TIME PER DR CH ORDER, PATIENT RECEIVED AMIODARONE PO THIS AM BY FOOD AND BEVERAGE COORDINATOR RN
[2020-07-01] MEDS: PHENYLEPHRINE IV 250 ML IV SCH ×2 (08:00→08:03)
--- NOTE | 2020-07-01 09:52 | NUR ---
re-assessment Per consult send SNF packets for potential SNF placement for PT on 07/01/2020. I called patients daughter Grecia at she is refusing SNF. Per Grecia patient will return home with her on discharge. Patient will need home health for PT on discharge please. Addendum: 07/01/20 at 1002 by Noyr Madison Amended: Links added.
[2020-07-01] MEDS ORDERED: FUROSEMIDE 40 MG/4 ML VIAL IV SCH (10:00)
[2020-07-01] MEDS ORDERED: ENALAPRIL MALEATE 2.5 MG TAB PO SCH (10:00)
[2020-07-01] MEDS: AMIODARONE 450mg/250ml AE 250 ML IV SCH (10:02)
[2020-07-01] MEDS: APIXABAN 2.5 MG TAB PO SCH (10:04)
[2020-07-01] MEDS: METOPROLOL TARTRATE 25 MG TAB PO SCH (10:04)
[2020-07-01] MEDS: ALLOPURINOL 100 MG TAB PO SCH (10:05)
[2020-07-01] MEDS: DOXYCYCLINE 100 MG TAB/CAP PO SCH (10:05)
--- NOTE | 2020-07-01 10:20 | NUR ---
PT AT BEDSIDE, OOB TO CHAIR, PATIENT REQUESTED TO WALK PRIOR TO CHAIR AND UNABLE TO WALK PER PT AND IS VERY WEAK.
--- NOTE | 2020-07-01 10:44 | NUR ---
SPOKE WITH DR JING CH GAVE OK TO TRANSFER TO TELE FLOOR. AWARE PATIENT IS IN CHAIR AND IS VERY WEAK. DR CH ADVISED DTR TO HAVE PATIENT TRANSFERRED TO SNF BUT DAUGHTER FRANDY REFUSING AND REQUESTING THAT PATIENT GOES HOME. DR CH STATED TO PLACE ORDER FOR FOOD AND BEVERAGE SERVER FOR HOME HEALTH, OXYGEN/PT AND PATIENT WILL HAVE TO GO HOME AMA IF DTR STILL REFUSING SNF PLACEMENT/TRANSFER. PATIENT REQUESTING TO GO HOME WELL. PATIENT ORIENTED TO PERSON/PLACE AND YEAR. REORIENTED TO REASON/DATE/TIME. SPOKE WITH DTR FRANDY AND STILL REQUESTING TO TAKE PATIENT HOME. DTR AWARE OF TELE TRANSFER ORDER AND AWARE OF ALL RIGHTS AND PATIENT AWARE OF HIS RIGHTS.
--- NOTE | 2020-07-01 11:34 | NUR ---
SPOKE WITH MARTIN SR STATED HE IS SON AND THE ELDEST AND POA WITH ARNAV DTR OF PATIENT. HAD PASSWORD, STATED HE WOULD PREFER PATIENT TO GO TO SNF RATHER THAN HOME WITH OTHER DTR FRANDY FOR PATIENT SAFETY. ADDRESSED CONCERNS AND TRANSFERRED TO RADHA FRANCOIS BLEACHING MACHINE OPERATOR FOR FURTHER QUESTIONS. RN ASKED FOR POA PAPERWORK TO BE FAXED AND FAX NUMBER GIVEN. MARTIN STATED HE WILL FAX POA PAPERWORK TODAY. PAGED RADHA FRANCOIS TO UPDATE. ATTEMPTED TO GIVE REPORT TO AUTOMOTIVE SHOP FOREMAN BUT AUTOMOTIVE SHOP FOREMAN BUSY AND WILL CALL BACK.
--- NOTE | 2020-07-01 11:41 | NUR ---
SPOKE WITH RADHA STOPPER GRINDER AND STATED UNTIL MARTIN SON SENDS POA PAPERWORK FRANDY IS IN CHARGE OF MAKING DECISIONS BECAUSE PATIENT LIVES WITH HER AND SHE IS HIS CARE PROVIDER. MARTIN AWARE AND STATED HE WILL FAX POA PAPERWORK AND WILL SPEAK WITH FRANDY TO "GET ON SAME PAGE".
--- NOTE | 2020-07-01 12:08 | NUR ---
TELEPHONE REPORT GIVEN TO CHAU BEE ON TELE FLOOR
--- NOTE | 2020-07-01 12:56 | NUR ---
TRANSFERRED WITH ALL BELONGINGS IN STABLE CONDITION ON TELE MONITOR 79 TO ROOM 291 BYareli RITCHIE RN AWARE PATIENT WILL GO HOME AMA AND TRANSPORT PENDING PER CHIEF OPERATOR HYDROFORMER AND FRANDY TO PAY FOR PRIVATE TRANSPORT. DR CH AWARE OF TRANSFER TO TELE AND STATED HE WILL PLACE PRESCRIPTIONS IN COMPUTER CHART.
[2020-07-01] MEDS ORDERED: FURO1TAB31 PO (13:36)
[2020-07-01] MEDS ORDERED: ALBUAER3 IN (13:36)
[2020-07-01] MEDS ORDERED: DOX100T PO (13:36)
[2020-07-01] MEDS ORDERED: AMIO200T4 PO (13:36)
[2020-07-01] MEDS ORDERED: ENAL2.5T7 PO (13:36)
[2020-07-01] MEDS ORDERED: APIX2.5T PO (13:36)
[2020-07-01] MEDS ORDERED: MET25T PO (13:36)
[2020-07-01] MEDS ORDERED: IPRIH IN (13:36)
--- NOTE | 2020-07-01 13:50 | NUR ---
PHONE CALL RECEIVED FROM DR. Munira VILLAR REGARDING PATIENT DISCHARGE. PATIENT WILL BE SIGNING AMA FOR DISCHARGE DUE TO REJECTING SNIFF PLACEMENT WHICH WAS ORDERED BY DR. Munira VILLAR. DR. Munira VILLAR AWARE OF PATIENT REQUEST TO GO HOME AND PATIENT GOING AMA. DR. Munira VILLAR HAS SPOKEN TO DAUGHTER FRANDY AND PATIENT REGARDING THE SAFETY RISK OF GOING HOME AND HAS ACCEPTED THE RISK. PATIENT WILL REQUIRE TRANSPORTATION HE IS UNABLE TO AMBULATE, PATIENT WILL WELL NEED HOME HEALTH FOR PT AND HOME OXYGEN. WILL PLACE A SOCIAL SERVICE CONSULT TO OBTAIN POC.
--- NOTE | 2020-07-01 16:33 | NUR ---
PHONE CALL MADE TO KAMI WISE REGARDING TRANSPORTATION PAYMENT AND PHARMACY COPAYMENT. FRANDY DAUGHTER AGREED TO PAY FOR TRANSPORTATION $240 AND [facility] $14.20 COPAYMENT. WILL AWAIT DELIVERY OF HOME O2 FROM THE PHONE NUMBER IS [phone]. ONCE DELIVERED SAFETY CARE TRANSPORTATION CAN BE PAGED TO SET UP A FILLING MACHINE OPERATOR TIME AT [phone]. FAMILY AND PATIENT NOTIFIED AND QUESTIONS ANSWERED.
--- NOTE | 2020-07-01 16:47 | NUR ---
D/C Planning Regarding social service consult for home health for physical therapy and home oxygen at 3 l/min. Faxed clinical information to [facility], [facility] and [facility]. Per Bernarda with [facility] patient has been accepted and service to start within 24-48hrs upon d/c day [phone]. Per Magali with [facility] [phone] portable oxygen will be deliver to bedside within 2-3 hours from now and concentrate oxygen to home. Per BOARD WRITERCRISTAL Valentine patient will need transportation home. Informed CRISTAL Valentine patient does not have transportation benefits and patient will be responsible for transportation. Informed CRISTAL Valentine I will contact patient daughter regarding cost of transportation. Placed call to Grecia [phone] advising her patient does not have transportation benefits and he will be responsible for the cost. Grecia agrees to pay for the transportation. Safety transportation was contact and provided with a quote of [phone] or [phone]. Grecia was informed of priced and agrees to pay the amount due. Grecia verbalize understanding d/c plan. Informed CRISTAL Medina Safety care transportation was placed ON WILL CALL due to no ETA confirmation for portable oxygen and once its deliver to bedside transportation can be arranged. CRISTAL Medina verbalize understanding d/c plan.
[2020-07-01] MEDS: TAMSULOSIN HYDROCHLORIDE 0.4 MG CAP PO SCH (18:00)
--- NOTE | 2020-07-01 18:30 | NUR ---
AMA Note Despite our efforts SHERYL SR states they want to leave the hospital Against Medical Advice (AMA) for discharge to SNF placement. SHERYL SR has normal mental status and full decision capacity. Dr. Munira VILLAR discharge order was for SNF placement. DR. Munira VILLAR notified of patient's and families wishes to go home and refused SNF placement. Dr. Munira VILLAR spoke to patient and family daughter FRANDY regarding going AMA for SNF placement. Patient advised of the risks of leaving AMA including and disability. The patient and family has had an opportunity to ask questions about his medical condition. Patient and family verbalized understanding risk of going home instead of SNF placement. Patient encouraged to return to the ER if symptoms do not improve or worsen.
--- NOTE | 2020-07-01 19:15 | NUR ---
Opening Shift Note Assumed care of patient, awake and alert. No S/S of distress/SOB or pain. Instructed on POC and to call for assist PRN, will continue to monitor for changes Q1hr and PRN. Bed locked in lowest position, HOB elevated at least 30 degrees, side rails up x 2 and call light is within reach.
--- NOTE | 2020-07-01 20:06 | NUR ---
Discharge instructions given as ordered. Encourage to follow up with PMD as instructed. All questions and concerns addressed. Patient verbalized understanding. Medication reconciliation form completed and copy given to patient. Home medications held in Pharmacy returned to patient, and needed vaccines given. IV removed with catheter intact, pressure dressing applied, cortés catheter removed. Telemetry unit returned to ICU. Patient taken to vehicle via gurney with all personal belongings, accompanied by home health. No distress noted at time of departure.
--- NOTE | 2020-07-02 09:30 | NUR ---
Spoke with patients family member, Dylon ([phone] ) regarding his cortés and Picc line. Informed her that the home health nurse will discontinue them when they follow up at his home per Bernarda at [facility] [phone].
== END 2020-07-01 20:00 | disposition left against medical advice (07) | DRG 208 ==
LOC: ER 04:54 → EDBD 04:54 → TELE 04:55 → CATH ICU 17:45 → ICU WEST 06-28 16:55 → TELE-WESTW 07-01 12:26
PROVIDERS: ADMIT Internal Medicine; ATTEND Internal Medicine
PROC: 5A1945Z Respiratory Ventilation, 24-96 Consecutive Hours (ICD-10-PCS; principal; 2020-06-27)
PROC: 0BH17EZ Insertion of Endotracheal Airway into Trachea, Via Natural or Artificial Opening (ICD-10-PCS; 2020-06-27)
DX: J18.9 Pneumonia, unspecified organism (principal); J96.01 Acute respiratory failure with hypoxia; I50.41 Acute combined systolic (congestive) and diastolic (congestive) heart failure; I13.0 Hypertensive heart and chronic kidney disease with heart failure and stage 1 through stage 4 chronic kidney disease, or unspecified chronic kidney disease; J44.0 Chronic obstructive pulmonary disease with (acute) lower respiratory infection; Z68.41 Body mass index [BMI] 40.0-44.9, adult; J90 Pleural effusion, not elsewhere classified; N17.9 Acute kidney failure, unspecified; Z20.828 Contact with and (suspected) exposure to other viral communicable diseases; E78.5 Hyperlipidemia, unspecified; I48.91 Unspecified atrial fibrillation; M10.9 Gout, unspecified; E11.22 Type 2 diabetes mellitus with diabetic chronic kidney disease; N40.0 Benign prostatic hyperplasia without lower urinary tract symptoms; D63.8 Anemia in other chronic diseases classified elsewhere; I95.9 Hypotension, unspecified; N18.9 Chronic kidney disease, unspecified; Z79.01 Long term (current) use of anticoagulants; Z79.4 Long term (current) use of insulin; E66.01 Morbid (severe) obesity due to excess calories
CPT/HCPCS: 36415; 36600; 51702; 71045; 80048; 80053; 80061; 80076; 80202; 81001; 82553; 82805; 82962; 83036; 83605; 83735; 83880; 84132; 84443; 84484; 85025; 85379; 85384; 85610; 85730; 86850; 86900; 86901; 87040; 87070; 87081; 87086; 87205; 87804; 87880; 92610; 93005; 93306; 94002; 94003; 94640; 96365; 96366; 96367; 96375; 99291; G0378; J0330; J1100; J1815; J2001; J2250; J2543; J2704; J7060

== ENCOUNTER → 2020-12-10 | Day surgery (SDC) | payer OTHER ==
[~2020-12-10] VITALS: Ht 172.7 cm; Wt 104.3 kg
[~2020-12-10] MED LIST changes: +ALBUAER3 IN; -ALEN1TAB32 PO; -AMIO200T33 PO; +AMIO200T4 PO; +APIX2.5T PO; -ATEN-60 PO; -BACL20TA PO; +ENAL2.5T7 PO; +FERR-20 PO; +FURO1TAB31 PO; -GLIM4TAB42 PO; +HYDR-4833 PO; -LOSA25TA38 PO; +METO25TA5 PO; -NIF10C PO; -OMEP20CA74 PO; +POTA1TAB61 PO; -RIVA20TA PO; -SPIR25TA8 PO; +VANCOMYCIN HCL 1000 MG VL ONE; +mitoMYcin 40 MG in STERILE WATER 60 ML IS ONE
== END | disposition home or self-care (01) ==
LOC: SUR 08:04
PROVIDERS: ATTEND Urology
DX: C67.4 Malignant neoplasm of posterior wall of bladder (principal); J44.9 Chronic obstructive pulmonary disease, unspecified; E66.9 Obesity, unspecified; I48.91 Unspecified atrial fibrillation; I25.10 Atherosclerotic heart disease of native coronary artery without angina pectoris; I49.9 Cardiac arrhythmia, unspecified; E11.22 Type 2 diabetes mellitus with diabetic chronic kidney disease; N18.9 Chronic kidney disease, unspecified; Z68.35 Body mass index [BMI] 35.0-35.9, adult; Z87.891 Personal history of nicotine dependence; Z20.822 Contact with and (suspected) exposure to COVID-19; Z98.890 Other specified postprocedural states; Z79.899 Other long term (current) drug therapy; Z85.51 Personal history of malignant neoplasm of bladder; Z53.8 Procedure and treatment not carried out for other reasons
CPT/HCPCS: J3370; J7050; J9280; U0003

== ENCOUNTER → 2021-01-04 | Day surgery (SDC) | payer OTHER ==
[~2021-01-04] VITALS: Ht 172.7 cm; Wt 103.4 kg
[~2021-01-04] MED LIST changes: -AMIO200T4 PO; +BENZ200C64 PO; +CIPROFLOXACIN 400MG/200ML 200 ML IV ONE; +DexAMETHasone SOD PHOS 10MG/1ML VIAL INJ ONE; +LIDOCAINE 2% JELLY 11ml (GLYDO) ONE; -METO25TA5 PO; +MIDAZOLAM HCL 1MG/1ML-2 ML VIAL ONE; +PHENYLEPHRINE HCL 10 MG/ML VL IV ONE; +PROPOFOL 10 MG/ML 20 ML IV ONE; +TETRACAINE 1% INJ 2 ML VIAL IJ ONE; -VANCOMYCIN HCL 1000 MG VL ONE; +fentaNYL CITRATE 100 MCG/2 ML VL ONE
[2021-01-04 14:40] VITALS: BP 130/61
== END | disposition home or self-care (01) ==
LOC: SUR 06:14
PROVIDERS: ATTEND Urology
DX: D49.4 Neoplasm of unspecified behavior of bladder (principal); I10 Essential (primary) hypertension; I48.91 Unspecified atrial fibrillation; E11.9 Type 2 diabetes mellitus without complications; J44.9 Chronic obstructive pulmonary disease, unspecified; E66.01 Morbid (severe) obesity due to excess calories; I42.9 Cardiomyopathy, unspecified; I49.9 Cardiac arrhythmia, unspecified; D64.9 Anemia, unspecified; M19.90 Unspecified osteoarthritis, unspecified site; Z87.891 Personal history of nicotine dependence; Z98.890 Other specified postprocedural states; Z79.899 Other long term (current) drug therapy; Z85.828 Personal history of other malignant neoplasm of skin; Z68.35 Body mass index [BMI] 35.0-35.9, adult; Z20.822 Contact with and (suspected) exposure to COVID-19
CPT/HCPCS: 52240; 82962; 88305; 88342; J0744; J1100; J2250; J2370; J2704; J3010; J9280; U0003